=== PATIENT | female | born 1995 | race Hispanic/Latino ===

== ENCOUNTER 2020-11-03 13:06 | Emergency (ER) | payer SELFPAY ==
[~2020-11-03] VITALS: Ht 154.9 cm; Wt 54.4 kg
[2020-11-03 13:34] LABS: BASOPHILS % (AUTO) 0.1 % (0.0-5.0); EOSINOPHILS % (AUTO) 0.5 % (0.0-8.0); HEMATOCRIT 42.4 % (36-48); LYMPHOCYTES % (AUTO) 6.6 % (21.0-51.0); MEAN CORPUSCULAR HEMOGLOBIN 29.3 pg (27.0-33.0); MEAN CORPUSCULAR HGB CONC 32.8 g/dL (32.0-36.0); MEAN CORPUSCULAR VOLUME 89.3 fL (79-99); MONOCYTES % (AUTO) 2.6 % (3.0-13.0); NEUTROPHILS % (AUTO) 89.7 % (40.0-77.0); PLATELET COUNT (AUTO) 234 K/uL (130-400); RED BLOOD CELL COUNT(AUTO) 4.75 MIL/uL (4.00-5.50); RED CELL DISTRIBUTION WIDTH 12.4 % (11.0-15.5); WHITE BLOOD COUNT (AUTO) 10.1 K/uL (4.8-10.8)
[2020-11-03 13:48] LABS: APPEARANCE,URINE Clear (CLEAR); BILIRUBIN,URINE Negative (NEGATIVE); COLOR,URINE Yellow (YELLOW); GLUCOSE, URINE (UA) Negative (NEGATIVE); KETONES,URINE Trace mg/dL (NEGATIVE); LEUKOCYTE ESTERASE ,URINE Small (NEGATIVE); NITRATE,URINE Negative (NEGATIVE); OCCULT BLOOD,URINE Negative (NEGATIVE); PROTEIN,URINE Trace mg/dL (NEGATIVE)
[2020-11-03 13:50] LABS: CREATININE 0.7 mg/dL (0.5-1.5); POTASSIUM 4.2 mmol/L (3.5-5.1)
[2020-11-03 14:00] LABS: BILIRUBIN,TOTAL 0.5 mg/dL (0.2-1.0)
[2020-11-03 14:01] LABS: ALBUMIN 4.3 g/dL (3.5-5.0); TOTAL PROTEIN, SERUM 8.6 g/dL (6.0-8.3)
[2020-11-03 14:06] LABS: HCG,QUAL RESULT NEGATIVE (NEGATIVE)
[2020-11-03] MEDS: MORPHINE 2 MG SYG IVP ONE (14:18)
[2020-11-03] MEDS: PROMETHAZINE HCL 25 MG/ML 1ML AMPULE IM ONE (14:18)
[2020-11-03] MEDS: 0.9%NACL 1000ML 1,000 ML IV ONE (14:19)
[2020-11-03 14:27] LABS: BACTERIA,URINE Few /HPF (None Seen); RBC,URINE None Seen /HPF (0-1)
[2020-11-03] MEDS ORDERED: DICY20TA2 PO (15:51)
[2020-11-03] MEDS ORDERED: ONDA4TAB10 PO (15:51)
[2020-11-03 16:02] VITALS: BP 126/78
== END 2020-11-03 16:03 | disposition home or self-care (01) ==
LOC: EDH 13:06
DX: K52.9 Noninfective gastroenteritis and colitis, unspecified (principal); Z79.899 Other long term (current) drug therapy
CPT/HCPCS: 36415; 74176; 80053; 81001; 81025; 82150; 82550; 83690; 85025; 84484; 96361; 96372; 96374; 99285; J2550; J7030

== ENCOUNTER 2023-06-05 16:53 | Emergency (ER) | payer OTHER ==
[~2023-06-05] VITALS: Ht 154.9 cm; Wt 57.2 kg
[~2023-06-05 16:53] MED LIST: DICY20TA2 PO; ONDA4TAB10 PO
[2023-06-05] MEDS ORDERED: ERYT1OIN7 OP (19:02)
[2023-06-05 19:36] VITALS: BP 129/70; PULSE 75; RESP 18; O2SAT 99
== END 2023-06-05 19:36 | disposition home or self-care (01) ==
LOC: EDH 16:53
DX: H10.89 Other conjunctivitis (principal); Z79.899 Other long term (current) drug therapy

== ENCOUNTER 2023-06-07 16:36 | Emergency (ER) | payer OTHER ==
[~2023-06-07] VITALS: Ht 154.9 cm; Wt 57.2 kg
[~2023-06-07 16:36] MED LIST changes: +ERYT1OIN7 OP
[2023-06-07] MEDS: HYDROCODONE/ACETAMINOPHEN 5/325 MG TAB PO ONE (20:28)
[2023-06-07] MEDS ORDERED: TETRACAINE HCL 0.5% 15 ML OPHTH SOLN OP SCH (20:30)
[2023-06-07 20:32] VITALS: BP 121/77; PULSE 77; RESP 16; O2SAT 100
[2023-06-07] MEDS: FLUORESCEIN SODIUM 1 STRIP STRIP OP SCH (20:47)
[2023-06-07] MEDS: TETRACAINE HCL 0.5% 15 ML OPHTH SOLN OU SCH (20:48)
[2023-06-07] MEDS ORDERED: IBUP-2070 PO (21:16)
== END 2023-06-07 21:32 | disposition home or self-care (01) ==
LOC: EDH 16:36
DX: H10.89 Other conjunctivitis (principal); H57.13 Ocular pain, bilateral; Z79.899 Other long term (current) drug therapy